=== PATIENT | male | born 1975 | race Asian ===

== ENCOUNTER 2018-10-25 21:45 | Inpatient (IN) | payer MEDICARE, MEDICAID ==
[~2018-10-25] VITALS: Ht 177.8 cm; Wt 67.4 kg
[~2018-10-25 21:45] MED LIST: CARV-49 PO; CYPR4TAB57 PO; FOLI0.8T19 PO; FOLI1TAB16 PO; PRED5TAB PO; SEVE800T8 PO; TACR5CAP2 PO; ZOLP10TA5 PO
[2018-10-25] MEDS ORDERED: normal saline 1000ml 1,000 ML IV ONE (22:08)
[2018-10-25] MEDS ORDERED: AMPH20CA3 PO (22:47)
--- NOTE | 2018-10-25 22:47 | NUR ---
DEVON GIVEN TO XAVI TO TAKE HOME.
[2018-10-25 23:20] LABS: BASOPHILS % (AUTO) 0.3 % (0-1); EOSINOPHILS # (AUTO) 0.3 X10'3 (0-0.9); EOSINOPHILS % (AUTO) 2.4 % (0-6); HEMOGLOBIN 14.3 g/dl (14.0-17.9); LYMPHOCYTES % (AUTO) 8.9 % (21-51); MEAN CORPUSCULAR HEMOGLOBIN 33.2 PG (27.0-31.0); MEAN CORPUSCULAR HGB CONC 33.3 % (33.0-36.5); MEAN CORPUSCULAR VOLUME 99.9 FL (78-98); MEAN PLATELET VOLUME 8.8 FL (7.4-10.4); MONOCYTES # (AUTO) 0.7 X10'3 (0-0.9); MONOCYTES % (AUTO) 6.1 % (2-12); NEUTROPHILS # (AUTO) 9.2 X10'3 (1.8-7.7); NEUTROPHILS % (AUTO) 82.3 % (42-75); PLATELET COUNT 243 X10'3 (140-440); WHITE BLOOD COUNT 11.2 X10'3 (4.5-11.0)
[2018-10-25 23:34] LABS: ALANINE AMINOTRANSFERASE 21 U/L (12-78); ALBUMIN 4.2 G/DL (3.4-5.0); ALBUMIN/GLOBULIN RATIO 1.1 (1.1-1.5); ALKALINE PHOSPHATASE 38 IU/L (46-116); ANION GAP 17 (8-16); ASPARTATE AMINO TRANSFERASE 18 U/L (10-37); BILIRUBIN,TOTAL 0.2 MG/DL (0.1-1.0); BLOOD UREA NITROGEN 18 MG/DL (7-18); BUN/CREATININE RATIO 12.9 (5.4-32.0); CALCIUM 8.6 MG/DL (8.5-10.1); CHLORIDE 103 MMOL/L (99-107); CREATININE 1.39 MG/DL (0.60-1.10); ETHANOL 0.229 GM/DL (0.0-0.010); GLUCOSE 104 MG/DL (70-104); POTASSIUM 3.8 MMOL/L (3.5-5.1); SODIUM 141 MMOL/L (135-145); eGFR 56 ML/MIN
[2018-10-26] MEDS ORDERED: normal saline 1000ML IV soln IVB ONE (00:15)
[2018-10-26] MEDS: normal saline 1000ml 1,000 ML IV SCH ×3 (01:39→17:56)
[2018-10-26] MEDS ORDERED: acetaminophen 325mg tablet PO PRN (01:40)
[2018-10-26] MEDS ORDERED: ondansetron/PF 4mg/2ml inj IV PRN (01:40)
[2018-10-26 03:31] LABS: URINE AMPHETAMINE SCREEN NEGATIVE (Neg); URINE BARBITUATE SCREEN NEGATIVE (Neg); URINE BENZODIAZEPINES SCREEN NEGATIVE (Neg); URINE CANNABINOID SCREEN NEGATIVE (Neg); URINE COCAINE SCREEN NEGATIVE (Neg); URINE METHADONE SCREEN NEGATIVE (Neg); URINE OPIATE SCREEN NEGATIVE (Neg); URINE PHENCYCLIDINE SCREEN NEGATIVE (Neg)
[2018-10-26 05:30] VITALS: BP 127/89
--- NOTE | 2018-10-26 05:31 | NUR ---
REPORT REC'D FROM LUCILA DAVIS. IN ED. PT UP TO FLOOR VIA [facility] AND ONE ATTENDANT, AMBULATES WELL TRANSFER TO BED.
[2018-10-26 06:00] VITALS: BP 127/89
--- NOTE | 2018-10-26 06:00 | NUR ---
Patient in room [facility]TH[facility] 4007. I have received report from LUCILA Bautista and had the opportunity to ask questions and assume patient care.
--- NOTE | 2018-10-26 06:22 | NUR ---
REPORT GIVEN TO LUICLA MCGUIRE.
[2018-10-26] MEDS: levetiracetam inj 500 MG in normal saline 100ml IV soln 95 ML IV SCH ×2 (07:00→19:51)
[2018-10-26] MEDS ORDERED: levetiracetam inj 500 MG in normal saline 100ml IV soln 95 ML IV SCH (08:00)
[2018-10-26 10:00] VITALS: BP 106/76
--- NOTE | 2018-10-26 12:19 | NUR ---
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 Addendum: 10/26/18 at 1224 by Carmela Luque RN Amended: Links added.
--- NOTE | 2018-10-26 12:45 | NUR ---
Went to pts room and pt was not in room or bathroom. Immediately received telephone call from [facility] that pt was downstairs with his IV pole and fluids, and he was informed by Security to return to his room immediately. Pt and returned to room 4007. Went to pts room to inform pt and his that he could not leave this floor under any circumstances, and will be considered leaving AMA if he leaves again. Pt stated "I wanted to go down with my daughter to tell her goodbye." Pt smelled heavily of cigarette smoke. informed "he knows he is not supposed to go downstairs." Pt replied "When you have been here as much as I have I want to leave." Reiterated to Pt and his that he is not to leave floor. Pt reports his PCP is . Informed pt that Dr. Garcia is covering today. His EEG will be done between 1-2pm and then his MRI at 2pm. Will continue to monitor pt activity, and report to when he makes rounds later today.
[2018-10-26] MEDS ORDERED: LORazepam 0.5 MG tablet PO ONE (13:35)
--- NOTE | 2018-10-26 14:00 | NUR ---
Pt admit w/ etoh 0.229; JEFF d/w RN regarding thiamin/folic/MVI per MD approval for etoh hx. Addendum: 10/26/18 at [address] Amended: Links added.
[2018-10-26] MEDS ORDERED: LORazepam 2 mg/ml vial IV ONE (14:30)
[2018-10-26] MEDS ORDERED: MYCO250C46 PO (17:43)
[2018-10-26 18:00] VITALS: BP 116/80
[2018-10-26] MEDS: tacrolimus anhydrous 1mg capsule PO SCH (19:51)
--- NOTE | 2018-10-27 06:20 | NUR ---
Patient in room [facility]TH[facility] 4007. I have received report from LUCILA Bonilla and had the opportunity to ask questions and assume patient care.
[2018-10-27 07:24] LABS: BASOPHILS % (AUTO) 0.6 % (0-1); EOSINOPHILS # (AUTO) 0.2 X10'3 (0-0.9); EOSINOPHILS % (AUTO) 3.1 % (0-6); HEMATOCRIT 37.9 % (42.0-52.0); HEMOGLOBIN 12.8 g/dl (14.0-17.9); LYMPHOCYTES % (AUTO) 15.5 % (21-51); MEAN CORPUSCULAR HEMOGLOBIN 33.6 PG (27.0-31.0); MEAN CORPUSCULAR HGB CONC 33.7 % (33.0-36.5); MEAN CORPUSCULAR VOLUME 99.7 FL (78-98); MONOCYTES # (AUTO) 0.6 X10'3 (0-0.9); NEUTROPHILS # (AUTO) 4.5 X10'3 (1.8-7.7); NEUTROPHILS % (AUTO) 71.8 % (42-75); PLATELET COUNT 190 X10'3 (140-440); RED CELL DISTRIBUTION WIDTH 14.2 % (11.5-14.5); WHITE BLOOD COUNT 6.3 X10'3 (4.5-11.0)
[2018-10-27] MEDS: levetiracetam inj 500 MG in normal saline 100ml IV soln 95 ML IV SCH (07:31)
[2018-10-27] MEDS: tacrolimus anhydrous 1mg capsule PO SCH ×2 (07:32→20:13)
[2018-10-27] MEDS: mycophenolate mofetil 250mg capsule PO SCH ×2 (07:32→18:46)
[2018-10-27 07:33] LABS: ALBUMIN 3.3 G/DL (3.4-5.0); ANION GAP 9 (8-16); BLOOD UREA NITROGEN 18 MG/DL (7-18); BUN/CREATININE RATIO 14.4 (5.4-32.0); CALCIUM 7.5 MG/DL (8.5-10.1); CHLORIDE 107 MMOL/L (99-107); CREATININE 1.25 MG/DL (0.60-1.10); GLUCOSE 89 MG/DL (70-104); PHOSPHORUS 3.2 MG/DL (2.3-4.5); POTASSIUM 3.8 MMOL/L (3.5-5.1); SODIUM 140 MMOL/L (135-145); TOTAL CARBON DIOXIDE 23.9 MMOL/L (24-32); eGFR 63 ML/MIN
[2018-10-27] MEDS: normal saline 1000ml 1,000 ML IV SCH ×2 (07:39→18:46)
[2018-10-27] MEDS: predniSONE 5mg tablet PO SCH (08:39)
[2018-10-27 10:00] VITALS: BP 110/74
[2018-10-27] MEDS ORDERED: FLU VACC QUAD 2018(5 YR UP)/PF 60 MCG/0.5 ML SYRINGE IM ONE (10:00)
[2018-10-27 11:07] LABS: MAGNESIUM 1.5 MG/DL (1.5-2.4)
--- NOTE | 2018-10-27 17:00 | NUR ---
Located pt and his almost to elevators. Pt dressed in citizen wear. IV disconnected earlier for shower. Asked pt and his where they were going. Pts informed they were going downstairs. Reiterated to and pt our lengthy conversation that was held multiple times yesterday that pt cannot leave the floor without a staff member with him. did not explain reason they were leaving 4th floor. Asked pt if he wanted to go Against Medical Advice. Pt asked "Whats that?" Informed pt and that if they would like to leave and go home, I have a form I would like them to sign. Emily, space engineer had explained to pt and his , earlier this afternoon, that Dr. Garcia was not able to discharge him today as his EEG results have not been returned, and it might take up to 72 hours for them to return. Per Dr. Garcia, he cannot discharge the patient, as he needs to be able to make a clear decision if pt can/cannot drive once he leaves the hospital, and report it to DMV, if necessary, as pt came in with new onset seizures. Explained this information to them again. Pts became very loud and made derogatory comments towards myself. and asked me to "lie to keep his driving a secret once he leaves here, so that no one finds out." Informed pt and his that I am not going to lie about his driving to anyone, and is just trying to make an accurate decision regarding his care and follow up on driving. Pts and continued to make disrespectful comments towards myself. They were outside the pts room, so I asked them to make a decision whether they were going to leave or stay. The stated "This is the most difficult hospitalization we have ever had." Pt and his walked past me and returned to his room.
[2018-10-27 18:00] VITALS: BP 114/78
--- NOTE | 2018-10-27 18:10 | NUR ---
Patient in room [facility]TH[facility] 4007. I have received report from LUCILA Casey and had the opportunity to ask questions and assume patient care.
[2018-10-27] MEDS: levetiracetam 250mg tablet PO SCH (20:13)
[2018-10-27 22:00] VITALS: BP 129/90
[2018-10-28 06:02] LABS: BASOPHILS % (AUTO) 0.7 % (0-1); EOSINOPHILS # (AUTO) 0.2 X10'3 (0-0.9); EOSINOPHILS % (AUTO) 3.7 % (0-6); HEMATOCRIT 38.8 % (42.0-52.0); LYMPHOCYTES # (AUTO) 0.7 X10'3 (1.1-4.8); LYMPHOCYTES % (AUTO) 11.7 % (21-51); MEAN CORPUSCULAR HEMOGLOBIN 33.4 PG (27.0-31.0); MEAN CORPUSCULAR HGB CONC 33.5 % (33.0-36.5); MEAN CORPUSCULAR VOLUME 99.7 FL (78-98); MEAN PLATELET VOLUME 8.5 FL (7.4-10.4); MONOCYTES # (AUTO) 0.6 X10'3 (0-0.9); MONOCYTES % (AUTO) 10.1 % (2-12); NEUTROPHILS # (AUTO) 4.5 X10'3 (1.8-7.7); NEUTROPHILS % (AUTO) 73.8 % (42-75); PLATELET COUNT 188 X10'3 (140-440); RED BLOOD COUNT 3.89 X10'6 (4.70-6.10); RED CELL DISTRIBUTION WIDTH 14.1 % (11.5-14.5); WHITE BLOOD COUNT 6.2 X10'3 (4.5-11.0)
--- NOTE | 2018-10-28 06:11 | NUR ---
Problems reprioritized. Patient report given, questions answered & plan of care reviewed with LUCILA Casey.
[2018-10-28 06:25] LABS: ALANINE AMINOTRANSFERASE 20 U/L (12-78); ALBUMIN 3.5 G/DL (3.4-5.0); ALKALINE PHOSPHATASE 31 IU/L (46-116); ANION GAP 11 (8-16); ASPARTATE AMINO TRANSFERASE 15 U/L (10-37); BILIRUBIN,TOTAL 0.5 MG/DL (0.1-1.0); BLOOD UREA NITROGEN 19 MG/DL (7-18); BUN/CREATININE RATIO 14.2 (5.4-32.0); CHLORIDE 105 MMOL/L (99-107); CREATININE 1.34 MG/DL (0.60-1.10); GLUCOSE 90 MG/DL (70-104); MAGNESIUM 1.5 MG/DL (1.5-2.4); PHOSPHORUS 3.8 MG/DL (2.3-4.5); POTASSIUM 4.1 MMOL/L (3.5-5.1); SODIUM 141 MMOL/L (135-145); TOTAL CARBON DIOXIDE 24.9 MMOL/L (24-32); TOTAL PROTEIN 7.1 G/DL (6.4-8.2); eGFR 58 ML/MIN
[2018-10-28] MEDS: mycophenolate mofetil 250mg capsule PO SCH (09:04)
[2018-10-28] MEDS: levetiracetam 250mg tablet PO SCH (09:04)
[2018-10-28] MEDS: tacrolimus anhydrous 1mg capsule PO SCH (09:05)
[2018-10-28] MEDS: predniSONE 5mg tablet PO SCH (09:05)
--- NOTE | 2018-10-28 09:15 | NUR ---
Received discharge orders from . Retrieved pts own medications that were stored in the Pharmacy. Per Pharmacy, removed medications that were pts own that were stored in the [facility]. Returned to pt and had him sign form and placed in chart. Reviewed discharge orders with pt and his . Pt escorted to the front door with for discharge to private vehicle at 0915.
== END 2018-10-28 09:15 | disposition home or self-care (01) | DRG 101 ==
LOC: ER 21:45 → ED HOLD 10-26 01:39 → ORTHO 4S 10-26 05:30
PROVIDERS: ATTEND Internal Medicine Critical Care Medicine
PROC: 3E0234Z Introduction of Serum, Toxoid and Vaccine into Muscle, Percutaneous Approach (ICD-10-PCS; principal; 2018-10-27)
DX: R56.9 Unspecified convulsions (principal); E87.2 Acidosis; Z94.0 Kidney transplant status; F10.129 Alcohol abuse with intoxication, unspecified; F17.210 Nicotine dependence, cigarettes, uncomplicated; N18.3 Chronic kidney disease, stage 3 (moderate); I12.9 Hypertensive chronic kidney disease with stage 1 through stage 4 chronic kidney disease, or unspecified chronic kidney disease; Z86.73 Personal history of transient ischemic attack (TIA), and cerebral infarction without residual deficits; Z23 Encounter for immunization
CPT/HCPCS: 36415; 70450; 70551; 71045; 80053; 80069; 80197; 80305; 80320; 82542; 83605; 83735; 84100; 84145; 85025; 87040; 87070; 93005; 93880; 95816; G0378; J1953; J2060; J7030; J7507; J7512; J7517; Q2037

== ENCOUNTER 2021-08-31 09:05 | Emergency (ER) | payer BC ==
[~2021-08-31] VITALS: Ht 175.3 cm; Wt 68.2 kg
[~2021-08-31 09:05] MED LIST changes: +AMPH20CA3 PO
[2021-08-31 09:21] VITALS: BP 136/94
[2021-08-31] MEDS ORDERED: LIDOcaine 5% patch TP STA (09:40)
[2021-08-31] MEDS ORDERED: GABA300C PO (09:49)
[2021-08-31] MEDS ORDERED: CELE200C PO (09:49)
[2021-08-31] MEDS ORDERED: SULF1TAB49 PO (09:52)
== END 2021-08-31 10:06 | disposition home or self-care (01) ==
LOC: ER 09:06
DX: M25.511 Pain in right shoulder (principal); L03.011 Cellulitis of right finger; I10 Essential (primary) hypertension; Z86.73 Personal history of transient ischemic attack (TIA), and cerebral infarction without residual deficits; Z98.890 Other specified postprocedural states; Z72.89 Other problems related to lifestyle; Z79.2 Long term (current) use of antibiotics; Z79.899 Other long term (current) drug therapy
CPT/HCPCS: 99283

== ENCOUNTER 2024-12-09 00:24 | Inpatient (IN) | payer BC, OTHER ==
[2024-12-08 23:56] VITALS: BP 141/91; PULSE 80; RESP 18; TEMP 98.5; O2SAT 98
[~2024-12-09] VITALS: Ht 177.8 cm; Wt 63.2 kg
[~2024-12-09 00:24] MED LIST changes: +CELE200C PO; -FOLI0.8T19 PO; +FOLI0.8T52 PO; -FOLI1TAB16 PO; +FOLI1TAB27 PO; +GABA300C PO
[2024-12-09 03:04] LABS: BASOPHILS % (AUTO) 0.4 % (0-1); EOSINOPHILS # (AUTO) 0.4 X10'3 (0-0.9); EOSINOPHILS % (AUTO) 3.8 % (0-6); HEMOGLOBIN 13.7 g/dl (14.0-17.9); LYMPHOCYTES # (AUTO) 1.4 X10'3 (1.1-4.8); LYMPHOCYTES % (AUTO) 12.7 % (21-51); MEAN CORPUSCULAR HEMOGLOBIN 33.2 PG (27.0-31.0); MEAN CORPUSCULAR HGB CONC 34.1 g/dL (33.0-36.5); MEAN CORPUSCULAR VOLUME 97.1 FL (78-98); MONOCYTES # (AUTO) 0.6 X10'3 (0-0.9); MONOCYTES % (AUTO) 5.8 % (2-12); NEUTROPHILS # (AUTO) 8.5 X10'3 (1.8-7.7); NEUTROPHILS % (AUTO) 77.3 % (42-75); PLATELET COUNT 253 X10'3 (140-440); RED BLOOD COUNT 4.12 X10'6 (4.70-6.10); RED CELL DISTRIBUTION WIDTH 12.7 % (11.5-14.5)
[2024-12-09 03:22] LABS: ALANINE AMINOTRANSFERASE 35 U/L (12-78); ALKALINE PHOSPHATASE 48 IU/L (46-116); ANION GAP 13 (8-16); ASPARTATE AMINO TRANSFERASE 24 U/L (10-37); BILIRUBIN,TOTAL 0.4 MG/DL (0.1-1.0); BLOOD UREA NITROGEN 26 MG/DL (7-18); BUN/CREATININE RATIO 18.1 (10.0-20.0); CALCIUM 9.5 MG/DL (8.5-10.1); CHLORIDE 103 MMOL/L (99-107); CREATININE 1.44 MG/DL (0.60-1.10); GLUCOSE 125 MG/DL (70-104); LIPASE 37 U/L (16-77); POTASSIUM 3.5 MMOL/L (3.5-5.1); SODIUM 142 MMOL/L (135-145); TOTAL CARBON DIOXIDE 25.8 MMOL/L (24-32); eCRCL 48 ML/MIN; eGFR 52 ML/MIN
[2024-12-09] MEDS ORDERED: iohexol 300mg/ml 100ml inj. ONE (07:04)
[2024-12-09] MEDS: HYDROcodone/acetaminophen 5mg/325mg tablet PO ONE (07:10)
[2024-12-09] MEDS: ondansetron 4mg rapidly disintigrating tab PO ONE (07:34)
[2024-12-09] MEDS: LORazepam 2 mg/ml vial IV ONE ×3 (08:01→19:41)
[2024-12-09 08:42] LABS: BILIRUBIN,URINE NEGATIVE (Neg); CLARITY,URINE CLEAR (Clear); COLOR,URINE YELLOW (Yellow); GLUCOSE, URINE NEGATIVE (Neg); KETONES,URINE TRACE mg/dl (Neg); LEUKOCYTE ESTERASE ,URINE NEGATIVE (Neg); NITRITES, URINE NEGATIVE (Neg); OCCULT BLOOD,URINE NEGATIVE (Neg); PROTEIN,URINE TRACE mg/dl (Neg); UROBILINOGEN,URINE 0.2 E.U/dL (0.2-1.0)
[2024-12-09 08:51] LABS: UA COLLECTION TYPE VOIDED
[2024-12-09 09:06] LABS: BACTERIA,URINE NONE SEEN /HPF (Neg); MUCUS STRANDS NONE SEEN /LPF (Neg); RBC,URINE 0-2 /HPF (0-2); SQUAMOUS EPITHELIAL CELL,UR NONE SEEN /LPF (FEW); WBC,URINE 0-4 /HPF (0-4)
[2024-12-09] MEDS: D5-1/2NS w/20 mEq potassium per 1000ml IV ONE (09:07)
[2024-12-09] MEDS: HYDROmorphone 1 mg/ml syringe IV ONE ×2 (09:08→11:53)
[2024-12-09 10:41] LABS: URINE AMPHETAMINE SCREEN POSITIVE (Neg); URINE BARBITUATE SCREEN NEGATIVE (Neg); URINE BENZODIAZEPINES SCREEN NEGATIVE (Neg); URINE CANNABINOID SCREEN NEGATIVE (Neg); URINE COCAINE SCREEN NEGATIVE (Neg); URINE METHADONE SCREEN NEGATIVE (Neg); URINE OPIATE SCREEN NEGATIVE (Neg); URINE PHENCYCLIDINE SCREEN NEGATIVE (Neg)
[2024-12-09 10:42] LABS: MAGNESIUM 1.8 MG/DL (1.5-2.4)
[2024-12-09] MEDS ORDERED: magnesium Cl slow-release 64mg tablet PO PRN (19:30)
[2024-12-09] MEDS ORDERED: potassium Cl 40MEQ/1/2NS 520ml 520 ML IV PRN (19:30)
[2024-12-09] MEDS ORDERED: magnesium sulf-water 4G/100mL 100 ML IV PRN (19:30)
[2024-12-09] MEDS ORDERED: magnesium hydroxide 30ml (MOM) UD suspension PO PRN (19:30)
[2024-12-09] MEDS ORDERED: magnesium sulf-water 2g/50mL 50 ML IV PRN (19:30)
[2024-12-09] MEDS ORDERED: acetaminophen 325mg tablet PO PRN (19:30)
[2024-12-09] MEDS ORDERED: mag hydrox/Alum hydrox/simeth 30ml oral suspension PO PRN (19:30)
[2024-12-09] MEDS ORDERED: potassium Cl 20 mEq SR tablet PO PRN ×2 (19:30)
[2024-12-09] MEDS: normal saline 1000ML IV soln IVB ONE (19:41)
[2024-12-09] MEDS ORDERED: SILD50TA53 (19:44)
[2024-12-09] MEDS ORDERED: ZOLP10TA (19:44)
[2024-12-09] MEDS ORDERED: TACR1CAP PO (19:44)
[2024-12-09] MEDS ORDERED: PRE5T (19:44)
[2024-12-09] MEDS ORDERED: GENT30OI2 TOP (19:44)
[2024-12-09] MEDS ORDERED: NYST60PO2 TOP (19:44)
[2024-12-09] MEDS ORDERED: DEXT20TA6 (19:44)
[2024-12-09] MEDS ORDERED: DOXY-224 (19:44)
[2024-12-09] MEDS ORDERED: KETO15CR2 (19:44)
[2024-12-09] MEDS ORDERED: MYCO250C PO (19:44)
[2024-12-09] MEDS ORDERED: CEPH-585 (19:44)
[2024-12-09] MEDS: normal saline 1000ml 1,000 ML IV SCH (20:40)
[2024-12-09] MEDS: acetaminophen 1,000mg/100ml IV 100 ML IV ONE (20:43)
[2024-12-09] MEDS: K and/or MAG REPLACEMENT MC SCH (20:48)
[2024-12-09] MEDS: docusate sod 100mg capsule PO SCH (20:48)
[2024-12-09] MEDS: heparin, porcine 5000 units/ml vial SQ SCH (20:49)
[2024-12-09] MEDS: methylPREDNISolone sod succ 125mg/2ml vial IV SCH (22:29)
[2024-12-09 22:50] VITALS: BP 141/91; PULSE 80; RESP 18; TEMP 98.4; O2SAT 97
[2024-12-10] VITALS (18 sets, daily range): BP systolic 135–182; BP diastolic 31–118; PULSE 64–94; RESP 12–25; TEMP 98.6–98.7; O2SAT 93–100
[2024-12-10] MEDS: LORazepam 2 mg/ml vial IM ONE (00:50)
[2024-12-10] MEDS: LORazepam 2 mg/ml vial IV ONE (01:02)
[2024-12-10] MEDS ORDERED: cyclobenzaprine 10mg tablet PO PRN (02:40)
[2024-12-10] MEDS ORDERED: haloperidol lactate 5mg/ml inj IM PRN (02:40)
[2024-12-10] MEDS ORDERED: LORazepam 2 mg/ml vial IV PRN (02:40)
[2024-12-10] MEDS ORDERED: dicyclomine 10 MG capsule PO PRN (02:40)
[2024-12-10] MEDS ORDERED: mag hydrox/Alum hydrox/simeth 30ml oral suspension PO PRN (02:40)
[2024-12-10] MEDS ORDERED: haloperidol 5mg tablet PO PRN (02:40)
[2024-12-10 05:22] LABS: BASOPHILS % (AUTO) 0.4 % (0-1); EOSINOPHILS % (AUTO) 0.2 % (0-6); HEMATOCRIT 42.6 % (42.0-52.0); HEMOGLOBIN 14.3 g/dl (14.0-17.9); LYMPHOCYTES # (AUTO) 0.9 X10'3 (1.1-4.8); LYMPHOCYTES % (AUTO) 8.9 % (21-51); MEAN CORPUSCULAR HEMOGLOBIN 32.5 PG (27.0-31.0); MEAN CORPUSCULAR HGB CONC 33.6 g/dL (33.0-36.5); MEAN CORPUSCULAR VOLUME 96.9 FL (78-98); MEAN PLATELET VOLUME 7.8 FL (7.4-10.4); MONOCYTES # (AUTO) 0.4 X10'3 (0-0.9); MONOCYTES % (AUTO) 4.1 % (2-12); NEUTROPHILS # (AUTO) 8.6 X10'3 (1.8-7.7); NEUTROPHILS % (AUTO) 86.4 % (42-75); PLATELET COUNT 251 X10'3 (140-440); RED CELL DISTRIBUTION WIDTH 12.8 % (11.5-14.5); WHITE BLOOD COUNT 9.9 X10'3 (4.5-11.0)
[2024-12-10 05:40] LABS: ALANINE AMINOTRANSFERASE 24 U/L (12-78); ALBUMIN 3.5 G/DL (3.4-5.0); ALBUMIN/GLOBULIN RATIO 0.9 (1.1-1.5); ALKALINE PHOSPHATASE 50 IU/L (46-116); ANION GAP 10 (8-16); ASPARTATE AMINO TRANSFERASE 27 U/L (10-37); BILIRUBIN,TOTAL 0.6 MG/DL (0.1-1.0); BLOOD UREA NITROGEN 15 MG/DL (7-18); BUN/CREATININE RATIO 13.3 (10.0-20.0); CALCIUM 8.9 MG/DL (8.5-10.1); CHLORIDE 102 MMOL/L (99-107); CREATININE 1.13 MG/DL (0.60-1.10); GLUCOSE 116 MG/DL (70-104); MAGNESIUM 1.5 MG/DL (1.5-2.4); POTASSIUM 4.3 MMOL/L (3.5-5.1); SODIUM 137 MMOL/L (135-145); TOTAL CARBON DIOXIDE 24.7 MMOL/L (24-32); TOTAL PROTEIN 7.5 G/DL (6.4-8.2); eCRCL 61 ML/MIN; eGFR 69 ML/MIN
[2024-12-10] MEDS ORDERED: TACROLIMUS IV SCH (08:00)
[2024-12-10] MEDS ORDERED: NORMAL SALINE IV SCH (08:00)
[2024-12-10] MEDS: atenolol 50mg tablet PO SCH (10:09)
[2024-12-10] MEDS: multivitamins, therapeutics tablet PO SCH (10:09)
[2024-12-10] MEDS: thiamine 100mg/ml 2ml inj. IV SCH (10:09)
[2024-12-10] MEDS: folic acid 1mg/0.2ml inj IV SCH (10:10)
[2024-12-10] MEDS ORDERED: diatrozoate meglu/diatrozoate sod (37% iodine) 120ML oral solution PO ONE (11:00)
[2024-12-10] MEDS: diatr meglu/diatrizoate 30ml oral sol.-(3 dose) bottle PO ONE (11:09)
[2024-12-10] MEDS: ondansetron/PF 4mg/2ml inj IV PRN (13:04)
[2024-12-10] MEDS: acetaminophen 1,000mg/100ml IV 100 ML IV ONE (16:27)
[2024-12-10] MEDS ORDERED: tacrolimus anhydrous 1mg capsule PO SCH ×2 (16:44→17:01)
[2024-12-10] MEDS ORDERED: fentaNYL/PF 50MCG/1 ML 2ML syringe IV PRN (17:20)
[2024-12-10] MEDS: ringers solution, lacted 1,000 ML IV SCH (17:20)
[2024-12-10] MEDS ORDERED: labetalol 20mg/4ml (5mg/ml) syringe IV PRN (17:20)
[2024-12-10] MEDS ORDERED: ondansetron/PF 4mg/2ml inj IV PRN (17:20)
[2024-12-10] MEDS ORDERED: morphine 2 MG/ML inj. syringe IV PRN (17:20)
[2024-12-10] MEDS ORDERED: hydrALAZINE 20mg/ml inj. IV PRN (17:20)
[2024-12-10] MEDS ORDERED: sevoflurane 250ml liquid IH ONE (17:35)
[2024-12-10] MEDS ORDERED: midazolam 1 mg/ML 2ml injection ONE (17:40)
[2024-12-10] MEDS ORDERED: fentaNYL/PF 50MCG/1 ML 2ML syringe ONE ×3 (17:40→18:53)
[2024-12-10] MEDS ORDERED: rocuronium 10mg/ml inj IV ONE ×2 (17:41→18:13)
[2024-12-10] MEDS ORDERED: LIDOcaine 2% (20mg/ml) 5ml vial ONE (17:41)
[2024-12-10] MEDS ORDERED: ondansetron/PF 4mg/2ml inj ONE (17:41)
[2024-12-10] MEDS ORDERED: propofol inj 20 ML IV ONE (17:41)
[2024-12-10] MEDS ORDERED: dexamethasone sod phosphate 4mg/ml inj. ONE (17:41)
[2024-12-10] MEDS ORDERED: ceFOXitin 1000 MG inj ONE (17:50)
[2024-12-10] MEDS ORDERED: labetalol 20mg/4ml (5mg/ml) syringe IV ONE (17:52)
[2024-12-10] MEDS ORDERED: sugammadex 200mg/2ml injection IV ONE (18:05)
[2024-12-10] MEDS ORDERED: acetaminophen 1,000mg/100ml IV 100 ML IV ONE (18:53)
[2024-12-10] MEDS: morphine 4 MG/ML inj SYRINge IV PRN (19:25)
[2024-12-10] MEDS: fentaNYL/PF 50MCG/1 ML 2ML syringe IV PRN (19:32)
[2024-12-10] MEDS ORDERED: naloxone 0.4 mg/ml inj IV PRN ×2 (19:35→19:45)
[2024-12-10] MEDS: carvedilol 6.25mg tablet PO SCH (20:00)
[2024-12-10] MEDS: nystatin 15 GM powder TP SCH (20:00)
[2024-12-10] MEDS: HYDROmorph/NS 0.2 mg/ml PCA 100 ML IV SCH (20:10)
[2024-12-10] MEDS ORDERED: diatr meglu/diatrizoate 30ml oral sol.-(3 dose) bottle PO SCH (21:00)
[2024-12-10] MEDS: tacrolimus anhydrous 1mg capsule PO SCH (23:15)
[2024-12-10] MEDS: mycophenolate mofetil 250mg capsule PO SCH (23:16)
[2024-12-11] VITALS (8 sets, daily range): BP systolic 125–152; BP diastolic 62–78; PULSE 57–99; RESP 15–18; TEMP 96–97.7; O2SAT 94–100
[2024-12-11 06:01] LABS: BASOPHILS % (AUTO) 0.1 % (0-1); EOSINOPHILS % (AUTO) 0 % (0-6); HEMATOCRIT 41.8 % (42.0-52.0); HEMOGLOBIN 14.3 g/dl (14.0-17.9); LYMPHOCYTES # (AUTO) 0.9 X10'3 (1.1-4.8); LYMPHOCYTES % (AUTO) 7.5 % (21-51); MEAN CORPUSCULAR HEMOGLOBIN 33.1 PG (27.0-31.0); MEAN CORPUSCULAR HGB CONC 34.2 g/dL (33.0-36.5); MEAN CORPUSCULAR VOLUME 96.6 FL (78-98); MEAN PLATELET VOLUME 8.9 FL (7.4-10.4); MONOCYTES # (AUTO) 1.3 X10'3 (0-0.9); NEUTROPHILS # (AUTO) 9.5 X10'3 (1.8-7.7); NEUTROPHILS % (AUTO) 81.4 % (42-75); PLATELET COUNT 255 X10'3 (140-440); RED BLOOD COUNT 4.32 X10'6 (4.70-6.10); RED CELL DISTRIBUTION WIDTH 12.6 % (11.5-14.5); WHITE BLOOD COUNT 11.7 X10'3 (4.5-11.0)
[2024-12-11 06:32] LABS: ALANINE AMINOTRANSFERASE 26 U/L (12-78); ALBUMIN 3.2 G/DL (3.4-5.0); ALBUMIN/GLOBULIN RATIO 0.8 (1.1-1.5); ALKALINE PHOSPHATASE 42 IU/L (46-116); ANION GAP 10 (8-16); ASPARTATE AMINO TRANSFERASE 22 U/L (10-37); BILIRUBIN,TOTAL 0.6 MG/DL (0.1-1.0); BLOOD UREA NITROGEN 21 MG/DL (7-18); BUN/CREATININE RATIO 16.4 (10.0-20.0); CALCIUM 8.1 MG/DL (8.5-10.1); CHLORIDE 101 MMOL/L (99-107); CREATININE 1.28 MG/DL (0.60-1.10); GLUCOSE 116 MG/DL (70-104); MAGNESIUM 1.5 MG/DL (1.5-2.4); PHOSPHORUS 4.9 MG/DL (2.3-4.5); POTASSIUM 4.5 MMOL/L (3.5-5.1); SODIUM 137 MMOL/L (135-145); TOTAL CARBON DIOXIDE 26.1 MMOL/L (24-32); TOTAL PROTEIN 7.2 G/DL (6.4-8.2); eCRCL 54 ML/MIN; eGFR 59 ML/MIN
[2024-12-11] MEDS: dextroamphetamine/amphetamine 5mg tablet PO SCH (08:40)
[2024-12-11] MEDS: TACROLIMUS IV SCH (09:56)
[2024-12-11] MEDS: NORMAL SALINE IV SCH (09:56)
[2024-12-12] MEDS ORDERED: LORazepam 2 mg/ml vial IV PRN (02:40)
[2024-12-12] MEDS ORDERED: LORazepam 1 MG tablet PO PRN (02:40)
[2024-12-12 05:05] LABS: BASOPHILS % (AUTO) 0.3 % (0-1); EOSINOPHILS # (AUTO) 0.1 X10'3 (0-0.9); EOSINOPHILS % (AUTO) 1.4 % (0-6); HEMATOCRIT 37.1 % (42.0-52.0); HEMOGLOBIN 12.5 g/dl (14.0-17.9); LYMPHOCYTES # (AUTO) 1.2 X10'3 (1.1-4.8); LYMPHOCYTES % (AUTO) 13.2 % (21-51); MEAN CORPUSCULAR HEMOGLOBIN 32.9 PG (27.0-31.0); MEAN CORPUSCULAR HGB CONC 33.7 g/dL (33.0-36.5); MEAN CORPUSCULAR VOLUME 97.6 FL (78-98); MEAN PLATELET VOLUME 8.4 FL (7.4-10.4); MONOCYTES % (AUTO) 11.5 % (2-12); NEUTROPHILS # (AUTO) 6.4 X10'3 (1.8-7.7); NEUTROPHILS % (AUTO) 73.6 % (42-75); PLATELET COUNT 200 X10'3 (140-440); RED CELL DISTRIBUTION WIDTH 12.6 % (11.5-14.5); WHITE BLOOD COUNT 8.8 X10'3 (4.5-11.0)
[2024-12-12 05:23] LABS: ALANINE AMINOTRANSFERASE 28 U/L (12-78); ALBUMIN 2.8 G/DL (3.4-5.0); ALBUMIN/GLOBULIN RATIO 0.7 (1.1-1.5); ALKALINE PHOSPHATASE 35 IU/L (46-116); ANION GAP 12 (8-16); ASPARTATE AMINO TRANSFERASE 25 U/L (10-37); BILIRUBIN,TOTAL 0.9 MG/DL (0.1-1.0); BLOOD UREA NITROGEN 24 MG/DL (7-18); CALCIUM 8.2 MG/DL (8.5-10.1); CHLORIDE 103 MMOL/L (99-107); GLUCOSE 84 MG/DL (70-104); MAGNESIUM 1.6 MG/DL (1.5-2.4); PHOSPHORUS 2.9 MG/DL (2.3-4.5); POTASSIUM 3.9 MMOL/L (3.5-5.1); SODIUM 137 MMOL/L (135-145); TOTAL CARBON DIOXIDE 22.5 MMOL/L (24-32); TOTAL PROTEIN 6.7 G/DL (6.4-8.2); eCRCL 57 ML/MIN; eGFR 64 ML/MIN
[2024-12-12 06:00] VITALS: BP 131/59; PULSE 60; RESP 18; TEMP 97.8; O2SAT 97
[2024-12-12 08:00] VITALS: BP 112/69; PULSE 65; RESP 18
[2024-12-12] MEDS: dextrose 50%-water 50ml dispensing syringe IV ONE (08:22)
[2024-12-12 11:38] VITALS: BP 130/79; PULSE 68; RESP 18; TEMP 98; O2SAT 99
[2024-12-12] MEDS ORDERED: HYDROcodone/acetaminophen 5mg/325mg tablet PO PRN (12:50)
[2024-12-12] MEDS: metoclopramide 5 mg/ml inj IV SCH (13:14)
[2024-12-12] MEDS: PCA WASTE DOCUMENTATION 1 MG ML MC SCH (14:24)
[2024-12-12 19:20] VITALS: BP 112/73; PULSE 63; RESP 16; TEMP 97.6; O2SAT 100
[2024-12-12 22:00] VITALS: BP 139/66; PULSE 68; RESP 20; TEMP 97.8; O2SAT 98
[2024-12-13] VITALS (7 sets, daily range): BP systolic 109–139; BP diastolic 66–83; PULSE 62–76; RESP 14–22; TEMP 97.7–98.3; O2SAT 94–100
[2024-12-13] MEDS: ondansetron/PF 4mg/2ml inj IV PRN (01:20)
[2024-12-13] MEDS: HYDROcodone/acetaminophen 10/325mg tab PO PRN (05:00)
[2024-12-13] MEDS: ondansetron/PF 4mg/2ml inj IV ONE (05:17)
[2024-12-13 06:00] LABS: BASOPHILS % (AUTO) 0.4 % (0-1); EOSINOPHILS # (AUTO) 0.1 X10'3 (0-0.9); EOSINOPHILS % (AUTO) 1.3 % (0-6); HEMATOCRIT 38.6 % (42.0-52.0); LYMPHOCYTES # (AUTO) 1.3 X10'3 (1.1-4.8); LYMPHOCYTES % (AUTO) 14.1 % (21-51); MEAN CORPUSCULAR HEMOGLOBIN 32.7 PG (27.0-31.0); MEAN CORPUSCULAR HGB CONC 33.6 g/dL (33.0-36.5); MEAN CORPUSCULAR VOLUME 97.3 FL (78-98); MEAN PLATELET VOLUME 8.4 FL (7.4-10.4); MONOCYTES # (AUTO) 0.9 X10'3 (0-0.9); MONOCYTES % (AUTO) 9.7 % (2-12); NEUTROPHILS # (AUTO) 6.6 X10'3 (1.8-7.7); NEUTROPHILS % (AUTO) 74.5 % (42-75); PLATELET COUNT 231 X10'3 (140-440); RED BLOOD COUNT 3.97 X10'6 (4.70-6.10); RED CELL DISTRIBUTION WIDTH 12.6 % (11.5-14.5); WHITE BLOOD COUNT 8.9 X10'3 (4.5-11.0)
[2024-12-13] MEDS ORDERED: dextroamphetamine/amphetamine 5mg tablet PO SCH (06:26)
[2024-12-13 06:28] LABS: ALANINE AMINOTRANSFERASE 36 U/L (12-78); ALBUMIN 2.9 G/DL (3.4-5.0); ALBUMIN/GLOBULIN RATIO 0.7 (1.1-1.5); ALKALINE PHOSPHATASE 38 IU/L (46-116); ANION GAP 11 (8-16); ASPARTATE AMINO TRANSFERASE 18 U/L (10-37); BILIRUBIN,TOTAL 0.8 MG/DL (0.1-1.0); BLOOD UREA NITROGEN 22 MG/DL (7-18); BUN/CREATININE RATIO 19.3 (10.0-20.0); CALCIUM 8.5 MG/DL (8.5-10.1); CHLORIDE 103 MMOL/L (99-107); CREATININE 1.14 MG/DL (0.60-1.10); GLUCOSE 106 MG/DL (70-104); MAGNESIUM 1.7 MG/DL (1.5-2.4); PHOSPHORUS 3.2 MG/DL (2.3-4.5); POTASSIUM 3.6 MMOL/L (3.5-5.1); SODIUM 140 MMOL/L (135-145); TOTAL CARBON DIOXIDE 26.3 MMOL/L (24-32); TOTAL PROTEIN 6.9 G/DL (6.4-8.2); eCRCL 60 ML/MIN; eGFR 68 ML/MIN
[2024-12-13] MEDS: dextroamphetamine/amphetamine 5mg tablet PO SCH (06:41)
[2024-12-13] MEDS: tacrolimus anhydrous 1mg capsule PO SCH (08:45)
[2024-12-13] MEDS ORDERED: ondansetron 4mg rapidly disintigrating tab PO PRN (13:40)
[2024-12-13] MEDS ORDERED: metoclopramide 10mg/10 ml UD oral solution PO PRN (13:40)
[2024-12-13] MEDS ORDERED: metoclopramide 10mg/10 ml UD oral solution PO SCH (14:50)
[2024-12-13] MEDS: metoclopramide 10mg tablet PO SCH (15:59)
[2024-12-14] MEDS ORDERED: LORazepam 1 MG tablet PO PRN (02:40)
[2024-12-14] MEDS ORDERED: LORazepam 2 mg/ml vial IV PRN (02:40)
[2024-12-14 05:01] LABS: BASOPHILS % (AUTO) 0.5 % (0-1); EOSINOPHILS # (AUTO) 0.1 X10'3 (0-0.9); EOSINOPHILS % (AUTO) 1.7 % (0-6); HEMATOCRIT 39.6 % (42.0-52.0); HEMOGLOBIN 13.2 g/dl (14.0-17.9); LYMPHOCYTES # (AUTO) 1.6 X10'3 (1.1-4.8); LYMPHOCYTES % (AUTO) 23.2 % (21-51); MEAN CORPUSCULAR HEMOGLOBIN 32.2 PG (27.0-31.0); MEAN CORPUSCULAR HGB CONC 33.3 g/dL (33.0-36.5); MEAN CORPUSCULAR VOLUME 96.7 FL (78-98); MEAN PLATELET VOLUME 8.2 FL (7.4-10.4); MONOCYTES # (AUTO) 0.7 X10'3 (0-0.9); MONOCYTES % (AUTO) 9.6 % (2-12); NEUTROPHILS # (AUTO) 4.5 X10'3 (1.8-7.7); PLATELET COUNT 242 X10'3 (140-440); RED BLOOD COUNT 4.09 X10'6 (4.70-6.10); RED CELL DISTRIBUTION WIDTH 12.5 % (11.5-14.5)
[2024-12-14 05:18] LABS: ALANINE AMINOTRANSFERASE 34 U/L (12-78); ALBUMIN 2.9 G/DL (3.4-5.0); ALBUMIN/GLOBULIN RATIO 0.7 (1.1-1.5); ALKALINE PHOSPHATASE 32 IU/L (46-116); ANION GAP 8 (8-16); ASPARTATE AMINO TRANSFERASE 14 U/L (10-37); BILIRUBIN,TOTAL 0.7 MG/DL (0.1-1.0); BLOOD UREA NITROGEN 21 MG/DL (7-18); BUN/CREATININE RATIO 17.6 (10.0-20.0); CALCIUM 8.5 MG/DL (8.5-10.1); CHLORIDE 103 MMOL/L (99-107); CREATININE 1.19 MG/DL (0.60-1.10); GLUCOSE 87 MG/DL (70-104); PHOSPHORUS 3.3 MG/DL (2.3-4.5); POTASSIUM 3.5 MMOL/L (3.5-5.1); SODIUM 140 MMOL/L (135-145); TOTAL CARBON DIOXIDE 29.5 MMOL/L (24-32); TOTAL PROTEIN 7.2 G/DL (6.4-8.2); eCRCL 58 ML/MIN; eGFR 65 ML/MIN
[2024-12-14 06:00] VITALS: BP 120/75; PULSE 59; RESP 14; TEMP 97.4; O2SAT 99
[2024-12-14 09:00] VITALS: RESP 16
[2024-12-14] MEDS: metoclopramide 10mg tablet PO SCH (09:01)
[2024-12-14 10:00] VITALS: BP 106/62; PULSE 58; RESP 18; TEMP 98.5; O2SAT 98
[2024-12-14] MEDS: predniSONE 5mg tablet PO SCH (12:07)
[2024-12-14 18:00] VITALS: BP 97/54; PULSE 71; RESP 12; TEMP 97.4; O2SAT 94
[2024-12-14] MEDS: lactose-reduced food (Ensure Enlive) - 237ml bottle PO SCH (18:00)
[2024-12-14] MEDS ORDERED: HYDR-3965 PO (19:46)
[2024-12-14 22:00] VITALS: BP 111/71; PULSE 65; RESP 13; TEMP 97.4; O2SAT 99
[2024-12-15 06:37] VITALS: BP 121/71; PULSE 52; RESP 14; TEMP 97.2; O2SAT 100
[2024-12-15 07:45] VITALS: RESP 14; O2SAT 100
[2024-12-15 08:02] VITALS: RESP 15
[2024-12-15 10:00] VITALS: BP 107/64; PULSE 81; RESP 16; TEMP 97.6; O2SAT 97
== END 2024-12-15 13:39 | disposition home or self-care (01) | DRG 335 ==
LOC: ER 00:24 → ED HOLD 17:44 → SUR 3N 22:50
PROVIDERS: ADMIT Internal Medicine; ATTEND Internal Medicine
PROC: 0D9670Z Drainage of Stomach with Drainage Device, Via Natural or Artificial Opening (ICD-10-PCS; principal; 2024-12-09)
PROC: BW211ZZ Computerized Tomography (CT Scan) of Abdomen and Pelvis using Low Osmolar Contrast (ICD-10-PCS; 2024-12-09)
PROC: 0DN84ZZ Release Small Intestine, Percutaneous Endoscopic Approach (ICD-10-PCS; 2024-12-10)
DX: K56.50 Intestinal adhesions [bands], unspecified as to partial versus complete obstruction (principal); K65.9 Peritonitis, unspecified; I12.0 Hypertensive chronic kidney disease with stage 5 chronic kidney disease or end stage renal disease; N17.9 Acute kidney failure, unspecified; T86.19 Other complication of kidney transplant; K55.9 Vascular disorder of intestine, unspecified; K46.0 Unspecified abdominal hernia with obstruction, without gangrene; Y83.8 Other surgical procedures as the cause of abnormal reaction of the patient, or of later complication, without mention of misadventure at the time of the procedure; K56.7 Ileus, unspecified; K57.30 Diverticulosis of large intestine without perforation or abscess without bleeding; I72.3 Aneurysm of iliac artery; I73.1 Thromboangiitis obliterans [Buerger's disease]; F17.210 Nicotine dependence, cigarettes, uncomplicated; G47.00 Insomnia, unspecified; Z79.899 Other long term (current) drug therapy; Z90.49 Acquired absence of other specified parts of digestive tract; Y92.89 Other specified places as the place of occurrence of the external cause; Z90.5 Acquired absence of kidney
CPT/HCPCS: 93306; 99285; Z7506; Z7508; 36415; 43762; 71045; 74176; 74177; 80053; 80197; 80305; 80320; 81001; 82948; 83690; 83735; 84100; 84132; 85025; 87070; 87075; 87081; 93005; A4618; A5200; A6253; A6258; A6449; A7000; C1758; G0378; J0131; J0694; J1100; J1171; J1644; J2003; J2060; J2250; J2270; J2405; J2704; J2765; J2919; J3010; J3411; J3480; J3490; J7030; J7050; J7120; J7512; J7517; Q9963; Q9967